=== PATIENT | male | born 2000 | race Caucasian/White ===

== ENCOUNTER 2018-02-07 17:45 | Emergency (ER) | payer OTHER ==
[2018-02-07] MEDS: KETOROLAC 30 MG INJ IV (19:07)
[2018-02-07 19:09] LABS: ADD MAN DIFF? NO
[2018-02-07 19:11] LABS: WHITE BLOOD COUNT 8.3 10^3/ul (4.8-10.8)
[2018-02-07 19:11] LABS: BASOPHILS % 0.4 % (0.0-2.0); EOSINOPHILS # 0.3 10^3/ul (0.0-0.5); EOSINOPHILS % 3.3 % (0.0-7.0); HEMATOCRIT 47.5 % (42.0-52.0); LYMPHOCYTES # 1.3 10^3/ul (0.8-2.9); LYMPHOCYTES % 15.7 % (18.0-55.0); MEAN CORPUSCULAR HEMOGLOBIN 28.8 pg (29.0-33.0); MEAN CORPUSCULAR HGB CONC 33.7 g/dl (32.0-37.0); MEAN CORPUSCULAR VOLUME 85.6 fl (72.0-104.0); MEAN PLATELET VOLUME 11.5 fl (7.4-10.4); MONOCYTE # 0.7 10^3/ul (0.3-0.9); MONOCYTES % 8.8 % (0.0-13.0); NEUTROPHIL # 5.9 10^3/ul (1.6-7.5); NEUTROPHILS % 71.4 % (30.0-74.0); PLATELET COUNT 163 10^3/UL (140-415); RED BLOOD COUNT 5.55 10^6/ul (4.70-6.10); RED CELL DISTRIBUTION WIDTH 12.3 % (11.5-14.5)
[2018-02-07 19:29] LABS: ADD UMIC YES; ALANINE AMINOTRANSFERASE 55 IU/L (13-69); ALBUMIN 4.9 g/dl (3.3-4.9); ALBUMIN/GLOBULIN RATIO 1.68; ALKALINE PHOSPHATASE 102 IU/L (42-121); ANION GAP 14 (8-16); ASPARTATE AMINO TRANSFERASE 36 IU/L (15-46); BILIRUBIN,INDIRECT 0.7 mg/dl (0-1.1); BILIRUBIN,TOTAL 0.7 mg/dl (0.2-1.3); BLOOD UREA NITROGEN 14 mg/dl (7-20); CARBON DIOXIDE 32 mmol/L (21-31); CHLORIDE 98 mmol/L (97-110); CREATININE 1.29 mg/dl (0.61-1.24); GLUCOSE 91 mg/dl (70-220); LIPASE 82 U/L (23-300); SODIUM 140 mmol/L (135-144); TOTAL PROTEIN 7.8 g/dl (6.1-8.1); UR AMORPHOUS CRYSTAL MANY /HPF (NONE SEEN); UR ASCORBIC ACID NEGATIVE (NEGATIVE); UR BILIRUBIN (Dip) NEGATIVE (NEGATIVE); UR BLOOD (Dip) 1+ mg/dL (NEGATIVE); UR CLARITY CLOUDY (CLEAR); UR COLOR YELLOW (YELLOW); UR GLUCOSE (Dip) NEGATIVE (NEGATIVE); UR KETONES (Dip) NEGATIVE (NEGATIVE); UR LEUKOCYTE ESTERASE (Dip) NEGATIVE Leu/ul (NEGATIVE); UR NITRITE (Dip) NEGATIVE (NEGATIVE); UR RBC 39 /HPF (0-5); UR SPECIFIC GRAVITY (Dip) 1.021 (1.003-1.030); UR TOTAL PROTEIN (Dip) NEGATIVE (NEGATIVE); UR UROBILINOGEN (Dip) NEGATIVE (NEGATIVE); UR WBC 0 /HPF (0-5)
[2018-02-07] MEDS: SOD CHLORIDE 0.9% 1,000 ML IV (19:50)
== END 2018-02-07 20:57 | disposition home or self-care (01) ==
LOC: FTE 17:45
DX: N20.0 Calculus of kidney (principal); N50.811 Right testicular pain
CPT/HCPCS: 36415; 74176; 76870; 80053; 81001; 83690; 85025; 96361; 96374; 99285-25

== ENCOUNTER 2019-04-02 07:51 | Day surgery (SDC) | payer OTHER ==
[2019-04-02] MEDS ORDERED: LACTATED RINGER'S 1,000 ML IV (09:00)
[2019-04-02] MEDS ORDERED: ROCURONIUM 50 MG INJ (09:25)
[2019-04-02] MEDS ORDERED: LIDOCAINE 2% (SDV) 5 ML INJ (09:25)
[2019-04-02] MEDS ORDERED: PROPOFOL 100 ML (09:25)
[2019-04-02] MEDS ORDERED: CEFAZOLIN 1 GM INJ (09:48)
[2019-04-02] MEDS ORDERED: LABETALOL HCL 20MG INJ (09:48)
[2019-04-02] MEDS: PHENYLephrine 0.25% 15 ML NAS SPRAY (09:58)
[2019-04-02] MEDS: BACITRACIN/POLYMYXIN 28.35 GM OINT TOP (09:58)
[2019-04-02] MEDS: LIDOCAINE 1%/EPI 30 ML INJ (09:58)
[2019-04-02] MEDS ORDERED: GLYCOPYRROLATE 0.4 MG INJ (10:24)
[2019-04-02] MEDS ORDERED: NEOSTIGMINE 3 MG/3 ML SYRINGE ×2 (10:24→10:34)
[2019-04-02] MEDS: ONDANSETRON 4 MG INJ IV (10:57)
[2019-04-02] MEDS: HYDROmorphONE 1 MG/5 ML IV SYRINGE IV ×2 (10:57→11:08)
[2019-04-02] MEDS ORDERED: FENTAnyl 50 MCG/ML VIAL IV ×2 (11:00)
[2019-04-02] MEDS ORDERED: ALBUTEROL 0.083% (NEB) 2.5 MG/3 ML AMP HHN (11:00)
[2019-04-02] MEDS ORDERED: MEPERIDINE 25 MG INJ IV (11:00)
[2019-04-02] MEDS ORDERED: EPHEDrine 25 MG/5 ML SYG IV (11:00)
[2019-04-02] MEDS ORDERED: HYDROmorphONE 1 MG/5 ML IV SYRINGE IV (11:00)
[2019-04-02] MEDS ORDERED: LABETALOL HCL 20MG INJ IV (11:00)
[2019-04-02] MEDS ORDERED: DIPHENHYDRAMINE 50 MG INJ IV (11:00)
[2019-04-02] MEDS ORDERED: OXYCODONE/ACETAMINOPHEN (5/325) TAB PO (11:00)
[2019-04-02] MEDS ORDERED: hydrALAzine 20 MG INJ IV (11:00)
[2019-04-02] MEDS: FENTAnyl 50 MCG/ML VIAL IV ×2 (11:20→11:31)
[2019-04-02] MEDS: OXYCODONE/ACETAMINOPHEN (5/325) TAB PO (11:59)
== END 2019-04-02 12:38 | disposition home or self-care (01) ==
LOC: SDS 07:51
DX: J34.2 Deviated nasal septum (principal); J34.3 Hypertrophy of nasal turbinates; J34.89 Other specified disorders of nose and nasal sinuses
CPT/HCPCS: 30140; 88300

== ENCOUNTER 2019-04-03 02:22 | Emergency (ER) | payer OTHER ==
[2019-04-03] MEDS: SILVER NITRATE SWAB TOP ×2 (02:51→02:54)
== END 2019-04-03 03:40 | disposition home or self-care (01) ==
LOC: E/R 02:22
DX: L76.22 Postprocedural hemorrhage of skin and subcutaneous tissue following other procedure (principal); J45.909 Unspecified asthma, uncomplicated
CPT/HCPCS: 30901; 99282-25